=== PATIENT | female | born 1995 | race Caucasian/White ===

== ENCOUNTER → 2020-08-17 13:25 | Outpatient (CLI) | payer OTHER, MEDICAID, SELFPAY ==
[2020-08-17 14:05] LABS: Appearance Urine UA CLEAR; Bilirubin Urine UA NEGATIVE (NEGATIVE); Color Urine UA YELLOW; Glucose Urine UA NEGATIVE (Negative); Ketones Urine UA NEGATIVE (NEGATIVE); Leukocyte Esterase Urine UA 2+ (NEGATIVE); Nitrite Urine UA NEGATIVE (Negative); Occult Blood Urine UA NEGATIVE (Negative); Protein Urine UA NEGATIVE (Negative); Urobilinogen Urine UA 0.2 E.U./dL (0.2)
[2020-08-17 14:24] LABS: pH Urine UA 6.5 (4.5-8.0)
[2020-08-17 14:25] LABS: Amorphous Sediment Urine 2+; Bacteria Urine None Seen; RBC Urine None Seen (0-5/HPF); Squamous Epithelial Cell Urine 10-30 /HPF (0-5/HPF); WBC Urine 5-10/HPF (0-5/HPF)
[2020-08-17 14:56] LABS: Add Manual Diff / Slide Review NO; Basophils Absolute Auto 0 /uL (0-100); Basophils Percent Auto 0.2 % (0-2); Eosinophils Absolute Auto 200 /uL (0-450); Eosinophils Percent Auto 1.5 % (2-4); Hematocrit 38.5 % (36-46); Hemoglobin 13.2 g/dL (12.0-16.0); Lymphocytes Absolute Auto 2800 /uL (1100-4500); Lymphocytes Percent Auto 26.7 % (25-40); Mean Corpuscular HGB Conc 34.2 % (30-36); Mean Corpuscular Hemoglobin 31.9 PG (26-34); Mean Corpuscular Volume 93.3 fL (80-100); Monocytes Absolute Auto 800 /uL (0-900); Monocytes Percent Auto 7.6 % (3-14); Neutrophils Absolute Auto 6800 /uL (1500-7000); Platelet Count 298 X10^3/uL (150-400); Red Blood Cell Count 4.13 X10^6/uL (4.0-5.2); Red Cell Distribution Width 12.5 % (11.6-14.8); White Blood Cell Count 10.6 X10^3/uL (4.5-11.0)
[2020-08-17 16:16] LABS: Hepatitis B Surface Antigen NEGATIVE s/c (NEGATIVE); Rubella Antibody IgG 12.9 IU/mL (>15)
[2020-08-17 16:31] LABS: HIV 1 & 2 Ab/Ag 4th Gen Combo NEGATIVE (NEGATIVE); Hep C Virus Ab w/Reflex Quant NEGATIVE s/c (NEGATIVE)
[2020-08-17 17:23] LABS: Urine N gonorrhoeae NOT DETECTED
[2020-08-17 18:42] LABS: Urine Chlamydia NOT DETECTED
[2020-08-18 04:16] LABS: RPR Screen Non Reactive (Non Reactive)
[2020-08-18 16:28] LABS: Varicella IgG Antibody 147 index (Immune >165)
== END ==
PROVIDERS: Referring Provider Specialist; Visit Provider Specialist
DX: Z34.81 Encounter for supervision of other normal pregnancy, first trimester (principal); Z11.3 Encounter for screening for infections with a predominantly sexual mode of transmission; Z3A.08 8 weeks gestation of pregnancy
CPT/HCPCS: 36415; 80055; 81003; 81015; 86787; 86803; 86850; 86900; 86901; 87077; 87086; 87147; 87389; 87491; 87591

== ENCOUNTER → 2020-11-08 09:17 | Outpatient (CLI) | payer OTHER, MEDICAID, SELFPAY ==
--- NOTE | 2020-11-08 09:18 | DI.US.S_ITS ---
PROCEDURE: US OB >= 14 WEEKS FETUS INDICATIONS: ANATOMY OUTSIDE/PRIOR DATING DATA: Last menstrual period (LMP): June 21, 2020 . LMP-based estimated date of delivery (CECILIA): March 28, 2021 . First dating scan (date and location): August 17, 2020 . Estimated date of delivery (CECILIA) from first dating scan: April 02, 2021 . TECHNIQUE: Real-time scanning was performed of the fetus, with image documentation and biometric measurements. Endovaginal scanning: Not performed COMPARISON: [facility], , OB >= 14 WEEKS FETUS, 10/19/2020, 13:47. FINDINGS: General: A single living intrauterine gestation is present. Presentation: Breech. Placenta: Placental position is anterior , without previa. Amniotic fluid index: 19.4 cm, normal range is 5-24 cm. heart rate: 152 beats per minute. Maternal cervical canal: 3.5 cm long. Normal lower limit is 2.5 cm. biometrics: Biparietal diameter: 4.6 cm, correlating with 20 weeks and 0 days Head circumference: 17.2 cm, correlating with 19 weeks and 5 days Abdominal circumference: 14.7 cm, correlating with 20 weeks and 0 days Femur length: 3.0 cm, correlating with 19 weeks and 2 days Estimated gestational age from initial scan: not applicable. Composite gestational age from present scan: 19 weeks and 5 days Estimated weight and percentile: 307 g which correlates with the 69th percentile based off gestational age Measurement variability for biometric dating: +/- 7 days from 14 weeks to 15 weeks 6 days gestation, +/- 10 days from 16 weeks to 21 weeks 6 days gestation, +/- 2 weeks from 22 weeks to 27 weeks 6 days gestation, +/- 3 weeks for 28 weeks gestation or later. weight reference: 4500 g or EFW >90/95% is considered macrosomia or large for gestational age. EFW <10% is small for gestational age. EFW 5% or less is considered intra-uterine growth restriction. Anatomic survey: Neuro: Ventricles are non-dilated at less than 10 mm. Cisterna magna is normal at 3-11 mm. Cerebellum is normal in size and morphology. Nuchal skin fold: Normal at less than 6 mm between 14-21 weeks gestational age. Face: Nose and lips, facial profile are normal. Spine: The sacral spine was not well visualized secondary to positioning throughout the study. Heart: 4-chambered heart is present, there is a possible left ventricular echogenic focus. Visualized portions of the outflow tract appear unremarkable. Diaphragm: Diaphragm is intact. Stomach: Left-sided stomach is present. Kidneys: No hydronephrosis. Normal is less than 5 mm in 2nd trimester, less than 7 mm in 3rd trimester. Cord: 3-vessel cord has orthotopic insertion. Bladder: Normal in size. Extremities: All 4 extremities identified. IMPRESSION: 1. Single living intrauterine gestation with estimated sonographic gestational age of approximately 19 weeks and 5 days. This correlates with an estimated dated delivery of approximately April 02, 2021. Estimated weight of approximately 307 g which correlates with the 69th percentile. 2. Suboptimal visualization of the sacral spine due to positioning. Follow-up imaging recommended. 3. Possible echogenic focus identified within the left ventricle which is a nonspecific finding and can be seen in to 20% of normal fetuses. This may represent the normal papillary muscle or cordae tendineae. Recommend correlation with maternal risk factors and further evaluation as clinically appropriate. Attention can be made on follow-up imaging. 4. Otherwise, unremarkable routine second trimester anatomic screening survey. Dictated by: Nadeem Townsend M.D. on 11/08/2020 at 17:05 Approved by: Nadeem Townsend M.D. on 11/08/2020 at 17:16
== END ==
PROVIDERS: Referring Provider Specialist; Visit Provider Specialist
DX: Z34.82 Encounter for supervision of other normal pregnancy, second trimester (principal); Z3A.20 20 weeks gestation of pregnancy
CPT/HCPCS: 76811

== ENCOUNTER → 2020-11-21 08:17 | Outpatient (CLI) | payer OTHER, MEDICAID, SELFPAY ==
--- NOTE | 2020-11-21 08:18 | DI.US.S_ITS ---
PROCEDURE: US OB FOLLOW UP INDICATIONS: RE-EVALUATE OUTSIDE/PRIOR DATING DATA: Last menstrual period (LMP): 06/21/20. LMP-based estimated date of delivery (CECILIA): 03/28/21 First dating scan (date and location): 08/17/20, by Dr. Amanda Estimated date of delivery (CECILIA) from first dating scan: 04/02/21, by Dr. Amanda . TECHNIQUE: Real-time scanning was performed of the fetus, with image documentation. Endovaginal scanning: Not needed COMPARISON: 11/08/20 Ob ultrasound. FINDINGS: A single living intrauterine gestation is present. Presentation: Breech Placenta: Placental position is anterior , without previa. Amniotic fluid index: 15.0 cm, normal range is 5-24 cm. heart rate: 147 beats per minute. Maternal cervical canal: 0.2 cm long. Normal lower limit is 2.5 cm. Estimated gestational age from initial scan: 21 weeks 1 day . Note: Normal evaluation of the lumbosacral spine during completion of anatomic survey was accomplished. IMPRESSION: Completion of anatomic survey, lumbosacral spine now is well visualized. Dictated by: Leonard Osman M.D. on 11/21/2020 at 10:58 Approved by: Leonard Osman M.D. on 11/21/2020 at 11:01
[2020-11-21 10:46] LABS: Hematocrit 36.5 % (36-46); Hemoglobin 12.7 g/dL (12.0-16.0)
[2020-11-21 11:05] LABS: GTT (PREG) 1 Hour PP 50gm Dose 87 mg/dL (76-139)
== END ==
PROVIDERS: Referring Provider Specialist; Visit Provider Specialist
DX: Z34.02 Encounter for supervision of normal first pregnancy, second trimester (principal); Z36.2 Encounter for other antenatal screening follow-up; Z3A.21 21 weeks gestation of pregnancy
CPT/HCPCS: 36415; 76816; 82950; 85014; 85018

== ENCOUNTER 2021-03-22 01:57 | Inpatient (IN) | payer OTHER, MEDICAID, SELFPAY ==
[2021-03-22] MEDS: PENICILLIN G POTASSIUM 5,000,000 UNIT in DEXTROSE 5% IN WATER 250 ML IV (03:24)
[2021-03-22 03:25] LABS: COVID19 - ADMIT (NP swab/PCR) Negative (Negative)
[2021-03-22 03:36] LABS: Add Manual Diff / Slide Review NO; Basophils Absolute Auto 100 /uL (0-100); Basophils Percent Auto 0.5 % (0-2); Eosinophils Absolute Auto 100 /uL (0-450); Eosinophils Percent Auto 0.7 % (2-4); Hematocrit 35.5 % (36-46); Lymphocytes Absolute Auto 3300 /uL (1100-4500); Lymphocytes Percent Auto 25.3 % (25-40); Mean Corpuscular HGB Conc 33.8 % (30-36); Mean Corpuscular Hemoglobin 31.7 PG (26-34); Mean Corpuscular Volume 93.9 fL (80-100); Monocytes Absolute Auto 1200 /uL (0-900); Monocytes Percent Auto 9.1 % (3-14); Neutrophils Absolute Auto 8300 /uL (1500-7000); Neutrophils Percent Auto 64.4 % (50-75); Platelet Count 280 X10^3/uL (150-400); Red Blood Cell Count 3.78 X10^6/uL (4.0-5.2); Red Cell Distribution Width 13.2 % (11.6-14.8); White Blood Cell Count 12.9 X10^3/uL (4.5-11.0)
[2021-03-22 04:47] VITALS: BP 122/68
--- NOTE | 2021-03-22 07:07 | P.HPOB_ITS ---
OB HPI Date/Time Date of admission: 03/22/21 Date Patient Seen: 03/22/21 Time Patient Seen: 07:10 History of Present Condition Chief complaint: labor : 2 Para: 1 Estimated Date of Delivery: 03/28/21 Estimated Gestational Age (weeks): 39 Narrative: Saadia Ren is a 25 year old female admitted in active labor History of Present care: good care, initiated at week # (9), number of visits (11) and pounds weight gain (44) Obstetrical complications: none Medical complications: none Preadmission Labs Blood type: A (+) positive -: Antibody screen: negative, GBS status: positive, HBsAG: negative, HIV: negative and RPR/VDLR: negative -: Chlamydia screen: not detected and Gonorrhea screen: not detected -: Rubella: not immune and Varicella: not immune HCAB: negative 1 hr GTT: 87 Prior (ies) History: 02/15/2019 39 weeks 8 lb 9 oz male infant Evaluation Evaluation Baseline heart rate: 130 Variability: Moderate (11-25) monitor accelerations: Present Monitor Decelerations: Absent Contraction Frequency (minutes): 3 Uterine Contraction Intensity: Strong/Firm Category of Tracing: Reactive Status: Category l Cervical dilation (cm): 6 Cervical effacement (%): 100 station: -2 PFSH Medical History (Updated 08/14/20 @ 10:39 by Andreea Balderas RN) Depression (spontaneous vaginal delivery) (~02/15/19) Surgical History (Updated 08/14/20 @ 10:39 by Andreea Balderas RN) H/O wisdom tooth extraction Family History (Updated 08/14/20 @ 10:33 by Andreea Balderas RN) Mother No problems noted. Father COPD (chronic obstructive pulmonary disease) Heavy smoker Grandmother Unknown whether patient has any health problems Grandfather Unknown whether patient has any health problems Grandmother No problems noted. Grandfather Old age Sister Cardiac anomaly Sister No problems noted. 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[id number]) current occupational exposures/hazards: No Smoking Status: Former smoker Tobacco: How many years used: 2 second hand exposure: No alcohol intake: former (pre- : social ) substance use type: does not use Meds Home Medications and Allergies Home Medications Medication Instructions Recorded Confirmed Type prenat.vits,mary,ktz-[id number]-svpkv 1 tab PO DAILY 08/14/20 03/21/21 History fluconazole 150 mg tablet 150 mg PO Q3D #2 tab 03/21/21 Rx (Diflucan) Allergies Allergy/AdvReac Type Severity Reaction Status Date / Time No Known Drug Allergies Allergy Verified 01/23/21 15:42 Review of Systems Review of Systems Narrative: good movement, no headaches, scotomata, epigastric pain. No l eakage of fluid Exam Vital Signs (past 8 hours): blood pressure 128/70, pulse 97, temperature 36.2?- 03/22/21 04:47 Blood Pressure 122/68 Narrative Exam Narrative: HEENT exam within normal limits. Lungs are clear to auscultation percussion. Heart is regular rate and rhythm no S3-S4 murmurs. Abdomen is gravid and nontender. Fetus is vertex. Extremities without edema and nontender Objective Labs Result Diagrams: 03/22/21 02:40 Labs: Laboratory Results - last 24 hr 03/22/21 03/22/21 03/22/21 02:25 02:40 02:40 WBC 12.9 H RBC 3.78 L Hgb 12.0 Hct 35.5 L MCV 93.9 MCH 31.7 MCHC 33.8 RDW 13.2 Plt Count 280 Neut % (Auto) 64.4 Lymph % (Auto) 25.3 Morrison % (Auto) 9.1 Eos % (Auto) 0.7 L Baso % (Auto) 0.5 Neut # (Auto) 8300 H Lymph # (Auto) 3300 Morrison # (Auto) 1200 H Eos # (Auto) 100 Baso # (Auto) 100 SARS-CoV-2 (PCR) Negative Blood Type A Positive Antibody Screen Negative Assessment and Plan Assessment and Plan Assessment and Plan narrative: term in active labor. Anticipate vaginal delivery.
[2021-03-22] MEDS: PENICILLIN G POTASSIUM 3,000,000 UNIT/50 ML FROZ.PIGGY 100 UNIT IV (07:12)
[2021-03-22] MEDS: ONDANSETRON 4 MG/2 ML INJ IV (07:46)
[2021-03-22] MEDS: LACTATED RINGERS 1,000 ML 100 ML IV (08:03)
[2021-03-22] MEDS: OXYTOCIN 10 UNIT/ML VIAL IM (09:16)
[2021-03-22] MEDS: fentaNYL 100 MCG/2 ML INJ IV (09:33)
--- NOTE | 2021-03-22 09:37 | PM.OBPRVD ---
Labor & Delivery Delivery date: 03/22/21 Intrapartal Events: None Cervical ripening method: none Induction method: none Delivery monitor: external FHT and external uterine Route of delivery: L&D Laceration Description: Periurethral - 1st Degree and Perineal - 2nd Degree Delivery repair: chromic (3 0) Estimated blood loss (mL): 400 Anesthesia Type: Local Narrative: Patient arrived on Labor and delivery in active labor. She was using nitrous oxide for pain control. heart tones category 1 to category 2 throughout labor. She delivered spontaneously, over an intact perineum. Baby was in the IOP position. was a nuchal cord that was released. The viable male infant was placed on maternal abdomen. After the cord stopped pulsating the cord was clamped, cut, and cord bloods obtained. The placenta delivered spontaneously, intact, with 3 vessels. There were no cervical tears. A second-degree midline perineal tear was repaired with 3 0 chromic suture in the usual 2 layer fashion. A first-degree right labial tear was repaired with 3 0 chromic suture. Estimated blood loss 400 cc. Both mother doing well. [place] Baby 1: Infant gender: Male Presentation: vertex Position: Left Occiput Posterior Placenta delivery description: Spontaneous Cord Vessel Description: 3 Vessels and Nuchal Cord score (1 min): 9 score (5 min): 8 weight: 7 lb 8 oz Plan for aftercare: Routine care
[2021-03-22] MEDS: OXYTOCIN PREMIX 30 UNIT/500 ML PLAST..BAG 200 UNIT IV (09:39)
[2021-03-22] MEDS: IBUPROFEN 600 MG TABLET PO ×2 (11:51→23:59)
[2021-03-22] MEDS: DERMOPLAST SPRAY 20% 60 ML 1 SPRAY TOP (11:52)
[2021-03-22] MEDS: ACETAMINOPHEN 325 MG TABLET 650 MG PO (22:25)
[2021-03-23] MEDS: LANOLIN OINT 7 GM 1 APPLIC TOP (00:21)
--- NOTE | 2021-03-23 09:30 | P.DS_ITS ---
Discharge Providers Provider Date of admission: 03/22/21 01:57 Discharge Date: 03/23/21 Primary care physician: Doctor Adrianna MD Consults: 03/22/21 02:26 Consult to Anesthesiology Urgent Comment: Consulting Provider: Anesthesiologist Reason for consultation: Epidural Has provider been notified: No 03/23/21 09:34 Consult to Boat Builder And Repairer Routine Comment: Discharge provider: Gracie Amanda MD Summary Hospital Course Date Patient Seen: 03/23/21 Time Patient Seen: 09:30 Diagnoses: 39 week gestation with spontaneous vaginal delivery Hospital Course: Patient arrived on labor and delivery in active labor. She had a spontaneous vaginal delivery With repair of a second-degree tear. She is breast-feeding without difficulty. She is urinating and ambulating well. No headaches, scotomata, epigastric pain. Peripartum Data Delivery Method: Natural Vaginal Laceration Description: Perineal - 2nd Degree and Labial ( First-degree right) Procedures: spontaneous vaginal delivery and repair of second-degree tear complications: none 1: Gender: Male Disposition of : home Discharge Diagnosis (1) Vaginal delivery: Status: Acute Status at Discharge Cognitive/behavioral status at discharge: oriented Functional status at discharge: independent ambulation Overall status at discharge: patient is progressing back to baseline Time Spent with Patient Time attestation: Total time spent providing and/or coordinating discharge services: Time spent: Less than 30 minutes Objective Labs Result Diagrams: 03/22/21 02:40 Exam Vital Signs (past 8 hours): blood pressure 132/81, pulse of 92, temperature 98.6? Narrative Exam Narrative: abdomen is soft, nontender. Uterus is firm, at U, nontender. Mild lochia. Repair is intact. Extremities without edema and nontender. Patient's blood type is A positive. She is rubella nonimmune so receive the rubella vaccine prior to discharge. She received Tdap in the 3rd trimester. Discharge Plan Discharge Plan Patient Disposition: Home Discharge orders & Medications Prescriptions: Continued fluconazole [Diflucan] 150 mg tablet 150 mg PO Q3D Qty: 2 RF: 0 prenat.vits,mary,[id number] Tablet 1 tab PO DAILY RF: 0 Follow up/Referrals: Gracie Amanda MD [Physician] - (Dr. Amanda April 19 @ 1:45pm- appt. appt @ [facility]: Thursday, Mar 25 @ 11am) Diet/Activity/Treatments Diet: Regular Activity: Nothing in vagina for 4 weeks. Skin/Wound/Dressing Care Report to your healthcare provider any signs of infection, such as:: chills, fever and increased pain Visit Report/Discharge Packet Stand Alone Forms: Discharge: Care Discharge Data Primary Care Provider: Miscellaneous,Doctor
[2021-03-23 10:42] VITALS: BP 132/81; PULSE 92; RESP 16; TEMP 37
[2021-03-23] MEDS: FERROUS SULFATE 325 MG TABLET PO (10:57)
[2021-03-23] MEDS: DOCUSATE 100 MG CAPSULE PO (10:57)
[2021-03-23] MEDS: IBUPROFEN 600 MG TABLET PO (10:58)
[2021-03-23] MEDS: PRENATAL VIT,CALC/IRON/FOLIC 1 TABLET 1 TAB PO (10:58)
[2021-03-23] MEDS: ACETAMINOPHEN 325 MG TABLET 650 MG PO (10:58)
== END 2021-03-23 11:30 | disposition home or self-care (01) | DRG 560 ==
PROVIDERS: Specialist; Admitting Provider Obstetrics & Gynecology; Referring Provider Obstetrics & Gynecology; Visit Provider Obstetrics & Gynecology
DX: O99.824 Streptococcus B carrier state complicating childbirth (principal); Z3A.39 39 weeks gestation of pregnancy; Z37.0 Single live birth; O70.1 Second degree perineal laceration during delivery; O71.82 Other specified trauma to perineum and vulva; O69.81X0 Labor and delivery complicated by cord around neck, without compression, not applicable or unspecified; Z20.822 Contact with and (suspected) exposure to COVID-19
CPT/HCPCS: 36415; 59050; 59409; 85025; 86850; 86900; 86901; 87635; C9803; G0379; J2405; J2540; J2590; J3010